=== PATIENT | female | born 1980 | race Caucasian/White ===

== ENCOUNTER → 2020-03-09 13:22 | Outpatient (CLI) | payer OTHER, SELFPAY ==
[2020-03-10 20:40] LABS: COVID19 Sendout Not Detected (Not Detect)
== END ==
PROVIDERS: Visit Provider Nurse Practitioner
DX: Z11.59 Encounter for screening for other viral diseases (principal)
CPT/HCPCS: 87635

== ENCOUNTER 2020-03-12 10:52 | Day surgery (SDC) | payer OTHER, SELFPAY ==
--- NOTE | 2020-03-12 | PATH_ITS ---
[facility] Accession Number: [id number] . 01 Material submitted: . PART A: duodenum - DUODENUM BX PART B: gastrointestinal site - BODY OF ANTRUM . 01 Clinical history: . SDC . 02 Diagnosis: A. Duodenum, Biopsy: Duodenal mucosa with no diagnostic abnormality. Negative for active inflammation, features of sprue, dysplasia, or malignancy. . B. Stomach, Biopsy: Antral and body-type mucosa with mild chronic gastritis. Negative for Helicobacter by immunohistochemistry. Negative for intestinal metaplasia. Negative for dysplasia and malignancy. MRV 03/17/2020 1423 Local . 02 Electronically signed: . Columba Tyson MD, Pathologist NPI- [id number] . 01 Gross description: . Part A: DUODENUM BX: Received in formalin are 4 fragment(s) of ramirez, soft tissue measuring 0.3 x 0.2 x 0.2 cm to 0.3 x 0.1 x 0.1 cm submitted entirely in 1 cassette(s) Part B: BODY OF ANTRUM: Received in formalin are 2 fragment(s) of ramirez, soft tissue measuring 0.5 x 0.2 x 0.1 cm to 0.3 x 0.2 x 0.2 cm submitted entirely in 1 cassette(s) /QBJ 03/13/2020 0946 Local . 02 Microscopic: . B. An immunohistochemical stain was performed to evaluate for Helicobacter organisms and is negative. The control stain showed appropriate reactivity. . * This test was developed and its performance characteristics determined by [facility]. It has not been cleared or approved by the U.S. Food and Drug Administration. The FDA has determined that such clearance or approval is not necessary. This test is used for clinical purposes. It should not be regarded as investigational or for research. . 02 Pathologist provided ICD-10: R12 . 02 CPT . 111514, 646791, [id number] Performed at: 01 [facility] [address] [address], [place], [place] [id number] MD Marin Keen MD Phone: [phone] Performed at: [address] [facility] [id number] [place], [place] [id number] MD Columba Tyson MD Phone: [phone]
--- NOTE | 2020-03-12 09:41 | P.HP_ITS ---
History of Present Illness History of Present Illness Date Patient Seen: 03/12/20 Chief complaint: SDC Narrative: 40-year-old female who was seen on 02/20/2020 due to the new symptoms of heartburn Meds Home Medications and Allergies Home Medications Medication Instructions Recorded Confirmed Type omeprazole magnesium [Prilosec OTC] 20 mg PO DAILY 03/12/20 03/12/20 History Allergies Allergy/AdvReac Type Severity Reaction Status Date / Time No Known Drug Allergies Allergy Verified 03/12/20 11:13 Exam Narrative Exam Narrative: General: Patient is well developed, not in apparent distress Cardiovascular: Regular rate and rhythm, no murmurs, rubs, or gallops; no e vidence of edema; no palpable abdominal aortic aneurysm Gastrointestinal: Normoactive bowel sounds, soft, nontender, nondistended, no rebound tenderness, no hepatosplenomegaly, no evidence of hernia Assessment & Plan Assessment & Plan narrative: 40-year-old female here for further evaluation of heartburn Regarding the procedure(s), the risks and potential complications, benefits, and alternatives (including not doing the procedure) were discussed with the patient. The risks include but are not limited to bleeding, splenic injury, infection, perforation which may require surgical intervention, missed lesions, and adverse reactions to sedative medicines. After a question and answer period, the patient agreed to proceed with the procedure(s) and gives informed consent.
[2020-03-12 11:14] VITALS: BP 116/73; PULSE 55; RESP 20; TEMP 36.6; O2SAT 99; BMI 25.0
[2020-03-12] MEDS: SODIUM CHLORIDE 0.9% 1,000 ML 70 ML IV (11:19)
[2020-03-12] MEDS: LIDOCAINE 4% SOLN 50 ML 20 ML TOP (11:53)
[2020-03-12] MEDS: fentaNYL 250 MCG/5 ML INJ IV (11:54)
[2020-03-12] MEDS: MIDAZOLAM 5 MG/5 ML VIAL IV (11:54)
--- NOTE | 2020-03-12 11:54 | P.OP.ENDO_ITS ---
Operative Date/Time/Diagnoses Date of procedure: 03/12/20 Procedure Notes Procedure in detail: Surgeon: Jonatan Meza MD Procedure: Esophagogastroduodenoscopy with biopsy Preoperative diagnosis: Heartburn, not responsive to therapy Postoperative diagnosis: Patulous LES, small hiatal hernia Medications: Conscious sedation using 6 mg IV of Midazolam and 150 mcg IV of Fentanyl; 4% lidocaine gargle Preanesthesia Assessment An H and P was performed/updated and the Px?s ASA class is 1. The procedure was discussed in detail with the patient. The potential risks and complications including infection, bleeding, missed lesions, perforation, need for surgery in case of perforation, prolonged hospital stay, and were explained. A brief question and answer period was allotted and once all questions were answered, informed consent was obtained. The patient was brought back to the procedure room and placed on standard monitoring. The patient?s vital signs were monitored continuously throughout the entire procedure. Prior to starting, a timeout was performed to confirm the patient?s identity, allergies, medications, and procedure. Procedure in detail The patient was placed in left lateral decubitus position and a bite block was inserted. The tip of the upper endoscope was placed into the mouth and advanced without difficulty under direct visualization into the esophagus. Esophagus: Normal esophageal mucosa; Z-line noted at 39 cm with patulous lower esophageal sphincter; GE Hill classification grade 4 Stomach: Small hiatal hernia; otherwise normal mucosa. Biopsies were taken from the body and antrum to rule out H pylori. Minimal bleeding with biopsies Duodenum: Normal visualized duodenum. Random biopsies taken to rule out celiac disease. Minimal bleeding with biopsies. The patient tolerated the procedure well and will be brought back to the recovery area to be discharged once criteria are met. The total physician intraservice time was 10 minutes. Complications There were no complications and estimated blood loss was minimal. Recommendations: Resume previous diet; avoid any food triggers for your heartburn Anti-reflux measures at all times Continue omeprazole dosing 30 minutes prior to lunch; wean as tolerated Consider starting probiotics daily to see whether this would improve your symptoms Follow up pathology results Call our office ([facility]) to schedule follow-up with me in 1-2 months; to discuss further management if symptoms persist An emergency contact number was given to the patient for any complications related to the procedure
[2020-03-12 12:08] VITALS: BP 110/70; PULSE 61; RESP 13; TEMP 36.4; O2SAT 98
[2020-03-12 12:13] VITALS: BP 106/68; PULSE 56; RESP 12; O2SAT 95
[2020-03-12 12:18] VITALS: BP 117/63; PULSE 59; RESP 10; O2SAT 96
[2020-03-12 12:23] VITALS: BP 99/69; PULSE 53; RESP 12; TEMP 36.6; O2SAT 99
--- NOTE | 2020-03-12 12:43 | SUR.PHASEI ---
report to sonia baker. Pt transferred to pacu 2 in stable condition with no c/o, taking po fluids well, denies pain or nausea
[2020-03-12 12:45] VITALS: BP 96/66; PULSE 53; RESP 12; TEMP 36.3; O2SAT 100
--- NOTE | 2020-03-12 12:53 | SUR.PHASEII ---
states that she feels drowsy, slightly light-headed. wants to go home. States that she is slightly nauseated but denies feeling like she will vomit. Declined quese-ease or for me to obtain IV med. Spouse at bedside. She wants to go home and sleep. Will facilitate this.
--- NOTE | 2020-03-12 13:09 | SUR.PHASEII ---
1302 to car, stable, no emesis, no further complaints of discomfort.
== END 2020-03-12 13:02 | disposition home or self-care (01) ==
PROVIDERS: Internal Medicine Gastroenterology; Referring Provider Internal Medicine; Visit Provider Internal Medicine
PROC: 0DJ08ZZ Inspection of Upper Intestinal Tract, Via Natural or Artificial Opening Endoscopic (ICD-10-PCS; CPT 43235; principal; 2020-03-12 12:30)
DX: R12 Heartburn (principal); K46.9 Unspecified abdominal hernia without obstruction or gangrene; K22.8 Other specified diseases of esophagus; K29.50 Unspecified chronic gastritis without bleeding
CPT/HCPCS: 43239; J2250; J3010